=== PATIENT | male | born 1975 | race Caucasian/White ===

== ENCOUNTER 2025-07-18 06:19 | Day surgery (SDC) | payer OTHER, SELFPAY | END 2025-07-18 12:13 | disposition home or self-care (01) | LOC: GI 06:19 | PROVIDERS: ATTENDING PHYSICIAN Surgery | DX: Z12.11 Encounter for screening for malignant neoplasm of colon (principal); K64.4 Residual hemorrhoidal skin tags; K64.9 Unspecified hemorrhoids; K62.1 Rectal polyp | CPT/HCPCS: 45380; 88305 ==